=== PATIENT | female | born 1950 | race Caucasian/White ===

== ENCOUNTER 2017-04-13 06:25 | Day surgery (SDC) | payer OTHER ==
[~2017-04-13 06:25] MED LIST: Lactated Ringers 1,000 ML IV SCH
--- NOTE | 2017-04-13 07:17 | PCM.PREANE ---
Preanesthetic Assessment - Anesthesia/Transfusion/Family Hx Anesthesia History: Prior Anesthesia Without Reaction Family History of Anesthesia Reaction: No Transfusion History: No Prior Transfusion(s) Intubation History: Unknown - Review of Systems General: No Symptoms Pulmonary: No Symptoms Cardiovascular: No Symptoms Gastrointestinal: No Symptoms Neurological: No Symptoms Other: Reports: None - Physical Assessment NPO Status Date: 04/11/17 NPO Status Time: 20:00 O2 Sat by Pulse Oximetry: 97 Respiratory Rate: 16 Vital Signs: Last Vital Signs Temp 36.3 C 04/13/17 06:45 Pulse 81 04/13/17 06:45 Resp 16 04/13/17 06:45 BP 126/79 04/13/17 06:45 Pulse Ox 97 04/13/17 06:45 Height: 1.7 m Weight: 77.111 kg ASA Class: 1 Mental Status: Alert & Oriented x3 Airway Class: Mallampati = 2 Dentition: Reports: Normal Dentition, [place](s) (down front (right) x1) Thyro-Mental Finger Breadths: 3 Mouth Opening Finger Breadths: 3 ROM/Head Extension: Full Lungs: Clear to Auscultation, Normal Respiratory Effort Cardiovascular: Regular Rate, Regular Rhythm - Allergies Allergies/Adverse Reactions: Allergies Allergy/AdvReac Type Severity Reaction Status Date / Time azithromycin Allergy Diarrhea Verified 04/11/17 07:49 clarithromycin [From Biaxin] Allergy Stomach Verified 04/11/17 07:49 Upset - Blood Blood Available: No - Anesthesia Plan Pre-Op Medication Ordered: None - Acknowledgements Anesthesia Type Planned: MAC Pt an Appropriate Candidate for the Planned Anesthesia: Yes Alternatives and Risks of Anesthesia Discussed w Pt/Guardian: Yes Pt/Guardian Understands and Agrees with Anesthesia Plan: Yes PreAnesthesia Questionnaire HEENT History: Reports: Other (See Below) Other HEENT History: wears glasses Gastrointestinal History: Reports: None Genitourinary History: Reports: None 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: Musculoskeletal History: Reports: Arthritis Neurological History: Reports: None Psychiatric History: Reports: Depression - Past Surgical History Head Surgeries/Procedures: Reports: None GI Surgical History: Reports: Appendectomy, Colonoscopy Female Surgical History: Reports: Hysterectomy Neurological Surgical History: Reports: Lumbar Spine Other Neurological Surgeries/Procedures: hx back fusion with cadaver screws Musculoskeletal Surgical History: Reports: Arthroscopic Knee, Other (See Below) Other Musculoskeletal Surgeries/Procedures:: cyst removed from rt thumb - SUBSTANCE USE Smoking Status *Q: Never Smoker Recreational Drug Use History: No - HOME MEDS Home Medications: Home Meds Acetaminophen [Tylenol] 2 tab PO ASDIRECTED PRN 04/11/17 [History] Calc/D3/Mag/Zn/Financial Professional/Felipe/[place] [Calcium 600 MG Plus Vit D] 1 tab PO BID 04/11/17 [History] Doxylamine Succinate [Unisom] 25 mg PO BEDTIME 04/11/17 [History] Glucosamine/D3/Boswellia Lula [Osteo Bi-Flex Caplet] 2 tab PO DAILY 04/11/17 [ History] Ibuprofen 1 - 2 tab PO ASDIRECTED PRN 04/11/17 [History] Magnesium Oxide [Magnesium] 400 mg PO ASDIRECTED 04/11/17 [History] Multivitamin [Multivitamins] 1 tab PO DAILY 04/11/17 [History] Sennosides/Docusate Sodium [Stool Softener Tablet] 1 tab PO DAILY 04/11/17 [ History] Turmeric Root Extract [Turmeric] 500 mg PO DAILY 04/11/17 [History] buPROPion HCl [Wellbutrin Xl] 150 mg PO DAILY 04/11/17 [History] - CURRENT (IN HOUSE) MEDS Current Meds: Current Medications Lactated Ringer's (Ringers, Lactated) 1,000 mls @ 125 mls/hr IV ASDIRECTED YANET Last Admin: 04/13/17 06:49 Dose: 125 mls/hr
[2017-04-13] MEDS ORDERED: Lidocaine 2% 5 ML SDV ONE (07:21)
[2017-04-13] MEDS ORDERED: Midazolam 1 MG/ML 2 ML SDV ONE (07:21)
[2017-04-13] MEDS ORDERED: Propofol 200 MG/20 ML SDV ONE (07:21)
[2017-04-13] MEDS ORDERED: fentaNYL 100 MCG/2 ML SDV ONE (07:22)
[2017-04-13] MEDS ORDERED: Lactated Ringers 1,000 ML IV SCH (08:15)
--- NOTE | 2017-04-13 08:16 | PCM.OPNOTE ---
- General Post-Op/Procedure Note Date of Surgery/Procedure: 04/13/17 Operative Procedure(s): Colonoscopy Pre Op Diagnosis: Desire for colorectal cancer screening Post-Op Diagnosis: No evidence of neoplasia Anesthesia Technique: MAC (ASA I) Condition: Good Free Text/Narrative:: Dictation [id number] CPT CODE 66502
--- NOTE | 2017-04-13 09:34 | OR ---
SURGEON: Braden Butler M.D. DATE OF PROCEDURE: 04/13/2017 OPERATION PERFORMED: Colonoscopy. ANESTHESIA: MAC. ASA CLASSIFICATION: I. PREOPERATIVE DIAGNOSIS: Desire for colorectal cancer screening. POSTOPERATIVE DIAGNOSIS: No evidence of neoplasia. DESCRIPTION OF PROCEDURE: The patient was taken to the endoscopy room and positioned on the endoscopy table in the left lateral decubitus position. Time-out was called for appropriate identification of the patient and procedure. Monitored anesthesia care was provided. The colonoscope was inserted into the rectum and advanced with moderate difficulty to the cecum where the colonoscope was retroflexed to visualize the ascending colon from below. The colonoscope was straightened. The cecum was identified by external pressure and internal landmarks. The cecum, ascending colon, hepatic flexure, transverse colon, splenic flexure, descending colon, sigmoid colon, and rectum were very well visualized. No tumors, polyps, diverticula, or angiodysplastic changes were noted anywhere throughout the lower gastrointestinal tract. Once the colonoscope was withdrawn to the rectum, it was retroflexed to visualize the anal orifice from above. No tumors, polyps, or acute hemorrhoidal changes were noted. The colonoscope was then straightened, the rectum aspirated, and the colonoscope removed. The patient tolerated the procedure well and was taken to recovery room in stable condition. MANDIE / EMILY /[id number]
== END 2017-04-13 08:50 | disposition home or self-care (01) ==
LOC: MW.SDS 06:25
PROVIDERS: ATTEND Surgery
DX: Z12.11 Encounter for screening for malignant neoplasm of colon (principal); F32.9 Major depressive disorder, single episode, unspecified; N63.0 Unspecified lump in unspecified breast; M19.90 Unspecified osteoarthritis, unspecified site; Z88.1 Allergy status to other antibiotic agents; Z79.899 Other long term (current) drug therapy; Z98.1 Arthrodesis status; Z90.49 Acquired absence of other specified parts of digestive tract; Z90.710 Acquired absence of both cervix and uterus; Z98.890 Other specified postprocedural states
CPT/HCPCS: 45378; J2250; J3010; J7120; 00810; J2704